=== PATIENT | male | born 1960 | race Two or more races ===

== ENCOUNTER 2019-06-29 20:30 | Inpatient (IN) | payer OTHER ==
[~2019-06-29] VITALS: Ht 162.6 cm; Wt 59.4 kg
[2019-06-29 23:45] VITALS: BP 127/78
[2019-06-30] VITALS: BP 127/78
--- NOTE | 2019-06-30 | NUR ---
design verification engineer notes Report was given by LALA Tapia from [facility]. Received Pt a direct admit from [facility]. Pt arrived accompany by two personnel EMT. Pt arrived with a gurney with ACLS protocol. Pt is 58 Y O Male with a diagnose of Alcohol Withdrawal by Dr. Harding. Pt is alert and orientedX4, calm and cooperative. Pt is a Namibian speaking and able to make needs known. Pt's at the bedside. Respiration is normal. No SOB. No nausea or vomiting. Pt denies any pain or discomfort at this time. Pt states " I drink tequila and beer." Pt also stated Pt's last drink was last thursday. IV sites at RFA # 20 is clean, intact, patent and flush without resistance. Notice Pt's hand tremor a little. Pt's does not take any medications at home. VS is stable. Pt's connected to heart monitor showed normal sinus rhytm. Skin assessment done and picture taken and placed in Pt's chart. Small lump on right cheek. Pt denies any pain or discomfort. All belonging was checked by MIRNA Bergeron. Pt educated on the use of call burnett. Instructed to call for assistance. Safety precautions is maintained. Bed at low position, brakes locked, side rails upX2 and call light is within reach. Will continue to monitor.
--- NOTE | 2019-06-30 00:42 | NUR ---
power ballast machine operator notes Contacted Dr. Harding for admission order. Awaiting for orders.
[2019-06-30] MEDS: IV NS 0.9% 1,000 ML IV PRN (01:56)
[2019-06-30] MEDS ORDERED: ONDANSETRON HCL/PF 4 MG/2 ML VIAL IVP PRN (02:00)
[2019-06-30] MEDS ORDERED: Z GUARD REMEDY 2 OZ OINT TP PRN (02:00)
[2019-06-30] MEDS ORDERED: MAGNESIUM HYDROXIDE 30 ML UDC PO PRN (02:00)
[2019-06-30] MEDS ORDERED: MAG HYDROX/AL HYDROX/SIMETH 30 ML UDC PO PRN (02:00)
[2019-06-30] MEDS ORDERED: HYDROCODONE/APAP 5/325MG 1 EACH TABLET PO PRN (02:00)
[2019-06-30 04:00] VITALS: BP 149/65
[2019-06-30 06:27] LABS: BASOPHILS % (AUTO) 0.9 % (0.0-2.0); EOSINOPHILS % (AUTO) 0.7 % (0.0-6.0); HEMATOCRIT 34 % (39-51); HEMOGLOBIN 11.4 g/dL (13.5-17.5); LYMPHOCYTES # (AUTO) 1.8 /CMM (0.8-4.8); LYMPHOCYTES % (AUTO) 46.7 % (20.0-44.0); MEAN CORPUSCULAR HGB CONC 33 g/dl (31.0-36.0); MEAN CORPUSCULAR VOLUME 106 fL (80-96); MONOCYTES # (AUTO) 0.1 /CMM (0.1-1.30); MONOCYTES % (AUTO) 3.4 % (2.0-12.0); NEUTROPHILS # (AUTO) 1.9 /CMM (1.8-8.9); NEUTROPHILS % (AUTO) 48.3 % (43.0-81.0); PLATELET COUNT (AUTO) 83 /CMM (150-450); RED BLOOD CELL COUNT(AUTO) 3.23 MIL/uL (4.5-6.0); WHITE BLOOD COUNT (AUTO) 3.9 K/uL (4.3-11.0)
--- NOTE | 2019-06-30 06:30 | NUR ---
in home tutor closing notes Pt is alert and oriented X4. Pt is resting in bed comfortably. Respiration is normal. No SOB. No nausea or vomiting. Pt denies any pain or discomfort at this time. IV sites at RFA # 20 is clean, intact, patent and infusing well NS @ 75 ml/hr. VS is stable. alarm security or surveillance monitor showed sinus briana 56 bpm. Kept Pt warm, comfortable and dry. All needs met and attended. Safety precautions is maintained. Bed at low position, brakes locked, side rails upX2, call light is within reach and bed alarm is on. Will endorse to morning nurse for TRUE.
[2019-06-30 06:38] LABS: CHOLESTEROL 342 mg/dL (<200); LDL 215 mg/dL (0-99); THYROID STIMULATING HORMONE 2.684 uIU/mL (0.358-3.74); TRIGLYCERIDES 890 mg/dL (30-150)
[2019-06-30 06:39] LABS: ALANINE AMINOTRANSFERASE 231 U/L (12-78); ALBUMIN 2.5 g/dL (3.4-5.0); ALKALINE PHOSPHATASE 303 U/L (46-116); BILIRUBIN,TOTAL 3.1 mg/dL (0.2-1.0); CALCIUM, SERUM 8.1 mg/dL (8.5-10.1); CARBON DIOXIDE 27 mmol/L (21-32); CHLORIDE 100 mmol/L (98-107); CREATININE 0.7 mg/dL (0.6-1.3); GLUCOSE 128 mg/dL (74-106); MAGNESIUM 1.8 mg/dL (1.8-2.4); PHOSPHORUS 2.9 mg/dL (2.5-4.9); POTASSIUM 3.2 mmol/L (3.5-5.1); SODIUM SERUM 137 mmol/L (136-145); TOTAL PROTEIN, SERUM 5.5 g/dL (6.4-8.2); UREA NITROGEN, BLOOD 12 mg/dL (7-18)
[2019-06-30 06:50] LABS: HDL CHOLESTEROL < 10 mg/dL (40-60)
[2019-06-30 07:07] LABS: ASPARTATE AMINOTRANSFERASE 266 U/L (15-37)
[2019-06-30 08:00] VITALS: BP 141/79
--- NOTE | 2019-06-30 08:00 | NUR ---
MS RN NOTES PATIENT ALERT, ORIENTED X4 . DENIES ANY PAIN OR DISCOMFORT. PERIPHERAL IV INTACT PATENT. BED IN LOW LOCKED POSITION. WILL CONTINUE TO MONITOR.
[2019-06-30] MEDS: LORAZEPAM INJ 2 MG/ML VIAL IV PRN ×2 (08:12→17:44)
[2019-06-30] MEDS: FOLIC ACID 1 MG TABLET PO SCH (08:12)
[2019-06-30] MEDS: THIAMINE HCL 100 MG TABLET PO SCH (08:12)
[2019-06-30 09:15] LABS: EOSINOPHILS % (MANUAL) 1 % (0-4); LYMPHOCYTES % (MANUAL) 43 % (16-48); MONOCYTES % (MANUAL) 4 % (0-11.0); NEUTROPHILS % (MANUAL) 52 (42-76)
[2019-06-30] MEDS ORDERED: POTASSIUM CHLORIDE 20 MEQ TAB.PRT.SR PO SCH (10:00)
[2019-06-30 16:00] VITALS: BP 153/76
--- NOTE | 2019-06-30 18:22 | NUR ---
MS RN NOTES PATIENT IN BED RESTING NO SOB OR ACUTE DISTRESS NOTED . PATIENT ALERT, ORIENTED X3 GERMAN SPEAKING. ALL DUE MEDICATIONS ADMINISTERED. ALL NEEDS MET. NO ACUTE CHANGES NOTED. WILL ENDORSE CARE TO PM SHIFT.
--- NOTE | 2019-06-30 19:15 | NUR ---
RN medsurg notes Pt is alert and oriented x4. Pt speaks Palestinian and able to make needs known. Pt is sitting in bed comfortably. Pt's at the bed side. Respiration is normal. No SOB. No nausea or vomiting. Pt denies any pain or discomfort at this time. IV sites at RFA # 20 is clean, intact, patent and infusing well NS @ 75 ml/hr. Instructed and informed Pt that UA needs to be collected. Pt verbalize understanding. Instructed to call. Safety precautions is maintained all the time. Bed at low position, brakes locked, side rails upX2 and call light is within reach. Will continue to monitor.
[2019-06-30 20:00] VITALS: BP 135/84
[2019-06-30 21:21] LABS: APPEARANCE,URINE Clear (CLEAR); BILIRUBIN,URINE Negative (NEGATIVE); BLOOD, URINE Negative Ery/uL (NEGATIVE); COLOR,URINE Dark (YELLOW); KETONES,URINE Negative (NEGATIVE); LEUKOCYTE ESTERASE ,URINE Negative (NEGATIVE); NITRITE, URINE Negative (NEGATIVE); PROTEIN,URINE Negative (NEGATIVE); UGLUCOSE Negative (NEGATIVE)
[2019-06-30 21:33] LABS: BACTERIA,URINE Rare /HPF (None Seen); RBC,URINE 0-2 /HPF (0-2); SQUAMOUS EPITHELIAL CELL,UR None Seen /HPF (None Seen); WBC,URINE 0-2 /HPF (0-3)
[2019-07-01] MEDS: LORAZEPAM INJ 2 MG/ML VIAL IV PRN ×2 (01:34→07:33)
--- NOTE | 2019-07-01 01:34 | NUR ---
RN medsurmary notes Pt is feeling restlessness and tremor. Administered Ativan Inj 1mg/0.5 ml IV push as ordered for tremor and restlessness per Pt request. Instructed to call. Will continue to monitor.
[2019-07-01] MEDS: IV NS 0.9% 1,000 ML IV PRN ×2 (05:18→20:41)
--- NOTE | 2019-07-01 06:00 | NUR ---
RN medsurg notes Pt accidentally removed IV sites at RFA# 20. Inserted new IV sites at RFA # 22. New sites is clean, intact, patent and flush without resistance. Pt tolerated activity well. Will continue to monitor.
[2019-07-01 06:38] LABS: BASOPHILS # (AUTO) 0.1 /CMM (0.0-0.2); BASOPHILS % (AUTO) 1.2 % (0.0-2.0); EOSINOPHILS % (AUTO) 1.1 % (0.0-6.0); HEMATOCRIT 36 % (39-51); HEMOGLOBIN 11.8 g/dL (13.5-17.5); LYMPHOCYTES # (AUTO) 1.6 /CMM (0.8-4.8); LYMPHOCYTES % (AUTO) 38.2 % (20.0-44.0); MEAN CORPUSCULAR HGB CONC 33 g/dl (31.0-36.0); MEAN CORPUSCULAR VOLUME 105 fL (80-96); MONOCYTES # (AUTO) 0.3 /CMM (0.1-1.30); MONOCYTES % (AUTO) 6.1 % (2.0-12.0); NEUTROPHILS # (AUTO) 2.3 /CMM (1.8-8.9); NEUTROPHILS % (AUTO) 53.4 % (43.0-81.0); PLATELET COUNT (AUTO) 108 /CMM (150-450); RED BLOOD CELL COUNT(AUTO) 3.38 MIL/uL (4.5-6.0); WHITE BLOOD COUNT (AUTO) 4.2 K/uL (4.3-11.0)
--- NOTE | 2019-07-01 06:42 | NUR ---
RN medsur closing notes Pt is alert and oriented X3, confused, and calm. Pt is resting in bed comfortably. Respiration is normal. No SOB. No S/S of distress noted. Pt denies any pain or discomfort at this time. IV sites at RFA # 22 is clean, intact, patent and SL. Pt refused to have IV fluid. Made aware risk and benefits. Pt verbalize understanding. VS is stable. Kept Pt warm, comfortable and dry. All needs met and attended. Safety precautions is maintained. Bed at low position, brakes locked, side rails upX2, call light is within reach and bed alarm is on. Will endorse to morning nurse for TRUE.
[2019-07-01 07:03] LABS: CALCIUM, SERUM 8.8 mg/dL (8.5-10.1); CREATININE 0.6 mg/dL (0.6-1.3); MAGNESIUM 1.7 mg/dL (1.8-2.4); PHOSPHORUS 4.2 mg/dL (2.5-4.9); POTASSIUM 3.5 mmol/L (3.5-5.1)
--- NOTE | 2019-07-01 07:30 | NUR ---
RN OPENING NOTES RECEIVED PATIENT IN BED RESTING. A/OX2, CONFUSED TO PLACE. PATIENT SAID HE'S AT HOME RIGHT NOW, REORIENTED PATIENT THAT HE'S IN [facility]. IV ACCESS ON R FA INTACT AND PATENT. KEPT PATIEN SAFE AND COMFORTABLE. BED IN LOW/LOCKED POSIITON, SIDERAILS UPX2, BED ALARM ON. CALL LIGHT IN REACH. WILL CONT TO MONIOTR ACCORDINGLY.
--- NOTE | 2019-07-01 07:33 | NUR ---
RN NOTES PATIENT NOTED WITH TREMORS, HANDS SHAKING. ATIVAN 1MG IV ORDERED.
[2019-07-01 08:00] VITALS: BP 129/80
--- NOTE | 2019-07-01 08:00 | NUR ---
RN NOTES PATIENT REFUSED TO BE CONNECTED TO IV FLUIDS. EXPLAINED RISK AND BENEFITS X3 BUT STILL REFUSED.
[2019-07-01] MEDS: THIAMINE HCL 100 MG TABLET PO SCH (08:41)
[2019-07-01] MEDS: FOLIC ACID 1 MG TABLET PO SCH (08:41)
[2019-07-01] MEDS ORDERED: LORAZEPAM 1 MG TABLET PO PRN ×2 (10:00→10:30)
--- NOTE | 2019-07-01 10:00 | NUR ---
RN NOTES PATIENT APPEARED MORE CONFUSED, STILL SHAKING, UNSTEADY GAIT, KEPT GETTING OUT OF BED, UNCOOPERATIVE WITH VERBAL COMMAND. PULLED OUT IV ACCESS, NO COMPLICATIONS NOTED. UNABLE TO GIVE ATIVAN DUE TO NO IV ACCESS. KRISTOFER FLORES NP AT [facility] AND MADE AWARE. NEW ORDERS NOTED AND WILL CARRY OUT.
--- NOTE | 2019-07-01 10:03 | NUR ---
RN NOTES CHANGED IV ATIVAN TO PO.
--- NOTE | 2019-07-01 10:05 | NUR ---
RN NOTES PATIENT REFUSED ATIVAN PO. KRISTOFER,LAST PUTTER AWAY AWARE. PER KRISTOFER, SHE WILL CHANGE IT TO IM. MEDICATION WASTED, WITNESS BY LALA FIORE [facility],PHARMACIST, NOTIFIED ABOUT THE WASTE.
[2019-07-01] MEDS ORDERED: Magnesium 1GM/D5W 100ML PREMIX 100 ML IV SCH (10:35)
--- NOTE | 2019-07-01 10:58 | NUR ---
RN NOTES PATIENT STILL SHAKING, CONFUSED SAYING HIS FAMILY IS WAITING FOR HIM OUTSIDE. ALSO GETTING OUT OF BED WITH UNSTEADY GAIT. ASSISTED PATIENT BACK TO BED, BED ALARM ON. MIRNA ZHANG AT BEDSIDE WATCHING HIM. ATIVAN 1MG IV GIVEN ORDERED. WILL MONITOR ACCORDINGLY.
[2019-07-01] MEDS ORDERED: LORAZEPAM INJ 2 MG/ML VIAL IM ONE (11:00)
--- NOTE | 2019-07-01 11:20 | NUR ---
RN NOTES PATIENT TRANSFERRED TO ROOM 320-2 WITH 1:1 SITTER.
[2019-07-01] MEDS ORDERED: MAGNESIUM OXIDE 400 MG TABLET PO ONE (12:00)
[2019-07-01] MEDS: LACTULOSE 10 G/15 ML UDC (PYXIS) PO SCH ×2 (12:57→17:58)
[2019-07-01] MEDS: LORAZEPAM INJ 2 MG/ML VIAL IM PRN ×3 (12:57→21:42)
[2019-07-01 16:00] VITALS: BP 136/97
--- NOTE | 2019-07-01 16:00 | NUR ---
RN NOTES STILL REFUSED IV INSERTION.
--- NOTE | 2019-07-01 19:00 | NUR ---
SITTING ON THE EDGE OF THE BED, SHAKING , DIAPHORETIC, CONFUSED, SITTER AT THE BEDSIDE AT THE BEDSIDE, PT DID ALLOW ME TO START HIS IV LEFT ARM AND START THE FLUID UP ORDERED.
--- NOTE | 2019-07-01 19:13 | NUR ---
RN CLOSING NOTES PATIENT IN STABLE CONDITION. STILL SHAKY. AT BEDSIDE. ALL NEEDS ATTENDED AND PROVIDED. ALL DUE MEDICATIONS ADMINISTERED ORDERED. KEPT PATIENT SAFE AND COMFORTABLE. BE DIN LOW/LOCKED POSITION, SIDERAILS UPX2, SITTER AT BEDSIDE FOR SAFETY. ENDORSED TO NIGHT RN FOR TRUE.
[2019-07-01 20:05] VITALS: BP 127/78
[2019-07-01 20:17] VITALS: BP 127/78
[2019-07-02] MEDS: LACTULOSE 10 G/15 ML UDC (PYXIS) PO SCH ×3 (00:11→17:20)
[2019-07-02] MEDS: LORAZEPAM INJ 2 MG/ML VIAL IM PRN ×2 (02:49→19:50)
--- NOTE | 2019-07-02 03:00 | NUR ---
CALL PLACED TO EZIO CERRATO REGARDING CONFUSION HALLUZINATIONS (REACHING IN MIDAIR, WHISTLING, KNCKING ON THE WALL,AND FOR AGITATION GETTING OOB FREQUENTLYSHAKING, DIAPHORETIC , TORE HIS IV TUBING, REFUSING THE IV FLUIDS. ORDERS TO GIVE HIM ATIVAN 2 MY IV X1, MADE EZIO AWARE I GAVE 2MG IM DOSE AT 1AM
[2019-07-02] MEDS ORDERED: LORAZEPAM INJ 2 MG/ML VIAL IV ONE (03:30)
--- NOTE | 2019-07-02 04:20 | NUR ---
ASSESSMENT AFTER THE 1x DOSE OS ATIVAN IV AWAKE SSAME LEVEL OF CONFUSION, TALKING TO THE SAUL WHISTLING TO CALL FOR HELP KICKING WHEN NURSE ATTEMPS TO HELP HE WILL KICK AND TWIST HER AEM SITTER AT THE BEDSIDE
--- NOTE | 2019-07-02 04:39 | NUR ---
RT NOTE PT REFUSED EKG, RN VICENTE AWARE.
[2019-07-02 05:41] VITALS: BP 105/67
--- NOTE | 2019-07-02 05:57 | NUR ---
PATIENT ASLEEP SOUNDLY. NOT SHAKING, SKIN DRY, SATS WERE 85% RA PLACED 2 LITERS N/C AND SATS AT 99%. REFUSED THE EKG EARLIER. SITTER REMAINS AT THE BEDSIDE. BED ALARM ON APPEARS COMFORTABLE. SLEPT FOR 2 HOURS THIS 12 HOUR SHIFT
[2019-07-02 06:49] LABS: BILIRUBIN,TOTAL 2.8 mg/dL (0.2-1.0); CALCIUM, SERUM 8.7 mg/dL (8.5-10.1); CREATININE 0.9 mg/dL (0.6-1.3); PHOSPHORUS 7.1 mg/dL (2.5-4.9); POTASSIUM 3.4 mmol/L (3.5-5.1); TOTAL PROTEIN, SERUM 6.2 g/dL (6.4-8.2)
[2019-07-02 06:53] LABS: BASOPHILS # (AUTO) 0.1 /CMM (0.0-0.2); BASOPHILS % (AUTO) 1.1 % (0.0-2.0); EOSINOPHILS % (AUTO) 0.2 % (0.0-6.0); HEMATOCRIT 35 % (39-51); HEMOGLOBIN 11.5 g/dL (13.5-17.5); LYMPHOCYTES # (AUTO) 1.1 /CMM (0.8-4.8); LYMPHOCYTES % (AUTO) 23.3 % (20.0-44.0); MEAN CORPUSCULAR HGB CONC 33 g/dl (31.0-36.0); MEAN CORPUSCULAR VOLUME 106 fL (80-96); MONOCYTES # (AUTO) 0.5 /CMM (0.1-1.30); NEUTROPHILS # (AUTO) 3.2 /CMM (1.8-8.9); NEUTROPHILS % (AUTO) 65.4 % (43.0-81.0); PLATELET COUNT (AUTO) 148 /CMM (150-450); RED BLOOD CELL COUNT(AUTO) 3.26 MIL/uL (4.5-6.0); WHITE BLOOD COUNT (AUTO) 4.9 K/uL (4.3-11.0)
[2019-07-02 08:00] VITALS: BP 111/72
--- NOTE | 2019-07-02 08:00 | NUR ---
MS RN OPENING NOTES Received Patient resting and asleep in bed. VS stable with no acute distress. Breathing even and unlabored on 2LPM via NC with no respiratory distress. No signs and symptoms of pain at this time. 22g PIV on LFA clean, dry, intact and flushing well. Safety precautions in place. Bed locked and set to lowest position with side rails x 2 up. All needs rendered at this time. Call light within reach. Sitter at bedside. Will continue to monitor.
[2019-07-02] MEDS: THIAMINE HCL 100 MG TABLET PO SCH (08:26)
[2019-07-02] MEDS: FOLIC ACID 1 MG TABLET PO SCH (08:26)
[2019-07-02] MEDS ORDERED: POTASSIUM CHLORIDE 20 MEQ TAB.PRT.SR PO SCH (10:00)
[2019-07-02] MEDS: CHLORDIAZEPOXIDE HCL 5 MG CAPSULE PO SCH ×2 (13:14→17:20)
[2019-07-02 16:00] VITALS: BP 106/72
--- NOTE | 2019-07-02 18:52 | NUR ---
MS RN CLOSING NOTES Patient awake and ambulating with around unit. VS stable with no acute distress. Breathing even and unlabored on room air with no respiratory distress. Denies pain. 22g PIV on LFA clean, dry, intact and flushing well. Safety precautions in place. Bed locked and set to lowest position with side rails x 2 up. All needs rendered at this time. Call light within reach. Sitter at bedside. Will endorse plan of care to oncoming shift.
--- NOTE | 2019-07-02 19:05 | NUR ---
RN MS OPENING NOTES RECEIVED PATIENT IN BED AWAKE ALERT AND ORIENTED X2-3 ,ABLE TO MAKE NEEDS, RESPIRATIONS EVEN AND UNLABORED WITH EQUAL RISE AND FALL OF CHEST, DENIES ANY PAIN OR DISCOMFORT, IV SITE TO LEFT FA INTACT AND PATENT, NO REDNESS, NO INFILTRATION PRESENT, ORIENTED TO STAFF AND CALL LIGHT AND KEPT WITHIN REACH, SAFETY PRECAUTIONS IN PLACE, LOW BED AND LOCKED, SITTER AT BEDSIDE, TOILETING AND FLUIDS OFFERED, ALL NEEDS ATTENDED AT THIS TIME, WILL CONTINUE TO MONITOR FOR ANY CHANGES AND ATTEND TO NEEDS.
--- NOTE | 2019-07-02 19:50 | NUR ---
RN MS NOTES PATIENT SHOWED AND STATES "I HAVE TREMORS" IN [place], REQUESTING FOR MEDICATION. ATIVAN PRN OFFERED, PATIENT AGREED . PRN ATIVAN GIVEN ORDERED, WILL CONTINUE TO MONITOR FOR EFFECTIVENESS.
[2019-07-02 20:00] VITALS: BP 118/79
[2019-07-03 06:32] LABS: BASOPHILS % (AUTO) 1.5 % (0.0-2.0); EOSINOPHILS % (AUTO) 0.8 % (0.0-6.0); HEMATOCRIT 33 % (39-51); HEMOGLOBIN 10.9 g/dL (13.5-17.5); LYMPHOCYTES # (AUTO) 1.4 /CMM (0.8-4.8); LYMPHOCYTES % (AUTO) 42.9 % (20.0-44.0); MEAN CORPUSCULAR HGB CONC 33 g/dl (31.0-36.0); MEAN CORPUSCULAR VOLUME 107 fL (80-96); MONOCYTES # (AUTO) 0.3 /CMM (0.1-1.30); MONOCYTES % (AUTO) 9.9 % (2.0-12.0); NEUTROPHILS # (AUTO) 1.4 /CMM (1.8-8.9); NEUTROPHILS % (AUTO) 44.9 % (43.0-81.0); PLATELET COUNT (AUTO) 163 /CMM (150-450); RED BLOOD CELL COUNT(AUTO) 3.08 MIL/uL (4.5-6.0); WHITE BLOOD COUNT (AUTO) 3.2 K/uL (4.3-11.0)
--- NOTE | 2019-07-03 06:34 | NUR ---
RN MS CLOSING NOTES PATIENT IN BED AWAKE ALERT AND ORIENTED X2-3 ,ABLE TO MAKE NEEDS, RESPIRATIONS EVEN AND UNLABORED WITH EQUAL RISE AND FALL OF CHEST, DENIES ANY PAIN OR DISCOMFORT, IV SITE TO LEFT FA #22 INTACT AND PATENT, IVF RUNNING ORDERED NO REDNESS, NO INFILTRATION PRESENT, CALL LIGHT KEPT WITHIN REACH, SAFETY PRECAUTIONS IN PLACE, LOW BED AND LOCKED, SITTER AT BEDSIDE, TOILETING AND FLUIDS OFFERED, ALL NEEDS ATTENDED AT THIS TIME, WILL CONTINUE TO MONITOR AND ENDORSE TO NEXT SHIFT, ATIVAN PRN WAS EFFECTIVE FOR TREMORS.
[2019-07-03 06:55] LABS: CALCIUM, SERUM 8.4 mg/dL (8.5-10.1); CREATININE 0.6 mg/dL (0.6-1.3); MAGNESIUM 2.1 mg/dL (1.8-2.4); PHOSPHORUS 3.9 mg/dL (2.5-4.9); POTASSIUM 3.7 mmol/L (3.5-5.1)
--- NOTE | 2019-07-03 07:53 | NUR ---
M/S RN OPENING NOTES RECEIVED PATIENT ON BED, A/O X 4 AND ABLE TO MAKE NEEDS KNOWN, ARMENIAN AND [place] VERDEAN SPEAKER. WITH SITTER ON BEDSIDE. NO SOB NOTED. DENIES PAIN AND DISCOMFORT. ABD SOFT AND NON DISTENDED. SKIN WARM TO TOUCH AND DRY. IV SITE AT LFA GAUGE 22 RUNNING NS 75 ML/HR. CALL LIGHT WITHIN REACH. WILL CONTINUE TO EVALUATE CARE.
[2019-07-03 08:00] VITALS: BP 125/74
[2019-07-03] MEDS: THIAMINE HCL 100 MG TABLET PO SCH (08:08)
[2019-07-03] MEDS: ACETAMINOPHEN 325 MG TABLET PO PRN ×2 (08:08→21:18)
[2019-07-03] MEDS: FOLIC ACID 1 MG TABLET PO SCH (08:08)
[2019-07-03] MEDS: CHLORDIAZEPOXIDE HCL 5 MG CAPSULE PO SCH (08:08)
[2019-07-03] MEDS: LACTULOSE 10 G/15 ML UDC (PYXIS) PO SCH ×3 (08:08→16:17)
--- NOTE | 2019-07-03 08:10 | NUR ---
M/S RN NOTES PT C/O OF HEADACHE 01/05, TYLENOL GIVEN FOR PAIN MANAGEMENT.
--- NOTE | 2019-07-03 08:46 | NUR ---
M/S RN NOTES PATIENT STATED FELT BETTER AFTER TYLENOL. WILL SLEEP FOR NOW
[2019-07-03] MEDS: IV NS 0.9% 1,000 ML IV PRN (09:32)
--- NOTE | 2019-07-03 11:13 | NUR ---
M/S RN NOTES PATIENT SEEN AND EVALUATED BY KRISTOFER CLAIRE. INFORMED PATIENT WITH NEW ORDERS OF LAB, INCREASING CHLORDIAZEPOXIDE DOSAGE FOR TREMORS. MONITOR PATIENTS TREMOR UNTIL END OF THE DAY WITH POSSIBLE DISCHARGE IF TREMORS IMPROVED/RESOLVED. PT VERBALIZED UNDERSTANDING WITH ON BEDSIDE
[2019-07-03] MEDS ORDERED: CHLO10CA6 PO (11:14)
[2019-07-03] MEDS ORDERED: LACT10SO6 PO (11:14)
[2019-07-03] MEDS ORDERED: Thiamine HCL PO (11:14)
[2019-07-03] MEDS ORDERED: FOLI1TAB16 PO (11:14)
[2019-07-03 16:00] VITALS: BP 115/77
[2019-07-03] MEDS: CHLORDIAZEPOXIDE HCL 10 MG CAPSULE PO SCH (16:17)
--- NOTE | 2019-07-03 18:30 | NUR ---
M/S RN NOTES NOTIFIED KRISTOFER CLAIRE FOR MONITORED CONTINUOUS TREMORS OF PATIENT, NEEDED STAND BY ASSIST IN AMBULATION WITH COMPLAIN OF LIGHT HEADEDNESS. NO DC ORDER NOTED AT THIS TIME. PT MADE AWARE.
--- NOTE | 2019-07-03 18:49 | NUR ---
M/S RN CLOSING NOTES PT A/O X 2-3, UGANDAN AND EGYPTIAN SPEAKING. NO SOB NOTED. DENIES PAIN AND DISCOMFORT. ABD SOFT AND NON DISTENDED, WITH BRP STAND BY ASSIST. STILL WITH PRESENCE OF TREMORS WITH ON AND OFF LIGHTHEADEDNESS REPORTED TO HOSPITALIST, HELD DISCHARGE TODAY. IV SITE AT LEFT FOREARM RUNNING NS AT 75 ML/HR, PT ALWAYS AMBULATES AND PREFERRED NO IV WHILE ACTIVITY. ENCOURAGED TO DRINK WATER INTAKE REPLACEMENT. ALL CONCERNS ADDRESSED. ENDORSED PT CARE TO NEXT SHIFT.
--- NOTE | 2019-07-03 19:30 | NUR ---
MS RN OPENING NOTE RECEIVED PATIENT IN CHAIR. A/O X 3. TOLERATING ROOM AIR. RESPIRATIONS ARE EVEN AND UNLABORED. NO S/S SOB. DENIES PAIN AT THIS TIME. NO APPARENT DISTRESS. IV ACCESS IN LFA #22 PATENT AND RUNNING NS@75ML/HR. BED IS LOW AND LOCKED, SIDE RAILS UP X2. CALL LIGHT WITHIN REACH. FAMILY AT THE BEDSIDE. WILL CONTINUE TO MONITOR.
[2019-07-03 20:00] VITALS: BP 122/51
--- NOTE | 2019-07-03 21:18 | NUR ---
MS RN NOTE ADMINISTER PRN TYLENOL 650MG FOR C/O HEADACHE. WILL CONTINUE TO MONITOR.
--- NOTE | 2019-07-03 22:20 | NUR ---
MS RN NOTE PATIENT REPORTS NO MORE HEADACHE. WILL CONTINUE TO MONITOR.
[2019-07-04 06:19] LABS: BASOPHILS % (AUTO) 1.2 % (0.0-2.0); HEMATOCRIT 31 % (39-51); HEMOGLOBIN 10.5 g/dL (13.5-17.5); LYMPHOCYTES # (AUTO) 1.2 /CMM (0.8-4.8); MEAN CORPUSCULAR HGB CONC 34 g/dl (31.0-36.0); MEAN CORPUSCULAR VOLUME 107 fL (80-96); MONOCYTES # (AUTO) 0.4 /CMM (0.1-1.30); MONOCYTES % (AUTO) 12.3 % (2.0-12.0); NEUTROPHILS # (AUTO) 1.9 /CMM (1.8-8.9); NEUTROPHILS % (AUTO) 53.5 % (43.0-81.0); PLATELET COUNT (AUTO) 183 /CMM (150-450); RED BLOOD CELL COUNT(AUTO) 2.92 MIL/uL (4.5-6.0); WHITE BLOOD COUNT (AUTO) 3.6 K/uL (4.3-11.0)
[2019-07-04 06:26] LABS: CALCIUM, SERUM 8.2 mg/dL (8.5-10.1); CREATININE 0.6 mg/dL (0.6-1.3); MAGNESIUM 2.2 mg/dL (1.8-2.4); PHOSPHORUS 3.1 mg/dL (2.5-4.9); POTASSIUM 3.3 mmol/L (3.5-5.1)
--- NOTE | 2019-07-04 07:54 | NUR ---
MS RN OPENING NOTES RECEIVED PATIENT IN BED, ALERT AND AWAKE ORIENTED X3. DENIES ANY C/O PAIN NOR DISCOMFORT. NO SOB. LFA #22 INTACT AND PATENT INFUSING NS @ 75 ML/HR EARNEST WELL. AMBULATORY WITH STEADY GAIT. CALL LIGHT WITHIN REACH. ABLE TO VERBALIZE NEEDS.
[2019-07-04] MEDS: THIAMINE HCL 100 MG TABLET PO SCH (08:44)
[2019-07-04] MEDS: FOLIC ACID 1 MG TABLET PO SCH (08:44)
[2019-07-04] MEDS: LACTULOSE 10 G/15 ML UDC (PYXIS) PO SCH ×2 (08:44→13:45)
[2019-07-04] MEDS: CHLORDIAZEPOXIDE HCL 10 MG CAPSULE PO SCH (08:44)
[2019-07-04] MEDS: IV NS 0.9% 1,000 ML IV PRN (08:44)
[2019-07-04] MEDS ORDERED: POTASSIUM CHLORIDE 20 MEQ TAB.PRT.SR PO SCH (09:30)
[2019-07-04] MEDS ORDERED: CHLO25CA22 PO (11:21)
--- NOTE | 2019-07-04 14:40 | NUR ---
MS BEAMING INSPECTOR/CLOSING NOTES PATIENT ALERT AND ORIENTED X3. NO SOB. DENIES ANY C/O PAIN, DISCOMFORT, N/V. AMBULATORY WITH STEADY GAIT. PATIENT COMPLIANT WITH CARE. DISCHARGE INSTRUCTIONS AND PACKET GIVEN TO PATIENT ALONG WITH EDUCATION WITH AT SIDE. IV ACCESS CATHETER REMOVED WITH CATHETER TIP INTACT WITH GAUZE DRESSING IN PLACE. ALL BELONGINGS ACCOUNTED FOR. PATIENT LEFT IN STABLE CONDITION VIA PRIVATE CARE.
== END 2019-07-04 14:40 | disposition home or self-care (01) | DRG 279 ==
LOC: TELE 23:33 → MED 06-30 08:30
PROVIDERS: ADMIT Registered Nurse; ATTEND Registered Nurse
DX: K72.00 Acute and subacute hepatic failure without coma (principal); F10.231 Alcohol dependence with withdrawal delirium; D69.6 Thrombocytopenia, unspecified; E87.1 Hypo-osmolality and hyponatremia; K70.30 Alcoholic cirrhosis of liver without ascites; K70.0 Alcoholic fatty liver; Y90.9 Presence of alcohol in blood, level not specified; E87.6 Hypokalemia; D53.9 Nutritional anemia, unspecified; T51.0X1A Toxic effect of ethanol, accidental (unintentional), initial encounter; Y90.0 Blood alcohol level of less than 20 mg/100 ml; Z71.41 Alcohol abuse counseling and surveillance of alcoholic
CPT/HCPCS: 36415; 76700-TC; 80048-TC; 80053-TC; 80061-TC; 81000-TC; 82140-TC; 82962-TC; 83735-TC; 84100-TC; 84443-TC; 85025-TC; 87081-TC; G0378; G0480; J2060; J7030

== ENCOUNTER 2019-10-15 17:08 | Emergency (ER) | payer OTHER ==
[~2019-10-15] VITALS: Ht 167.6 cm; Wt 59.4 kg
[~2019-10-15 17:08] MED LIST: CHLO25CA22 PO; FOLI1TAB16 PO; LACT10SO6 PO; Thiamine HCL PO
--- NOTE | 2019-10-15 17:49 | NUR ---
PT CAME IN BIB FAMILY MEMBER C/O RELAPSE FROM DRINKING. PT'S FAMILY MEMBER STATES THAT HE DRANK 3 VODKA SHOTS AND HAS BEEN FEELING BAD. PT IS AAOX3. NOT IN ANY DISTRESS. BREATHING EVENLY AND UNLABORED. CONNECTED TO MONITOR.
--- NOTE | 2019-10-15 17:55 | NUR ---
blood collected and sent with phlebotomis
[2019-10-15] MEDS ORDERED: IV NS 0.9% 1,000 ML BAG IV ONE (18:00)
[2019-10-15 18:03] LABS: BASOPHILS % (AUTO) 0.6 % (0.0-2.0); EOSINOPHILS % (AUTO) 0.1 % (0.0-6.0); HEMATOCRIT 47 % (39-51); HEMOGLOBIN 15.6 g/dL (13.5-17.5); LYMPHOCYTES # (AUTO) 2.6 /CMM (0.8-4.8); LYMPHOCYTES % (AUTO) 49.4 % (20.0-44.0); MEAN CORPUSCULAR HGB CONC 33 g/dl (31.0-36.0); MEAN CORPUSCULAR VOLUME 93 fL (80-96); MONOCYTES # (AUTO) 0.2 /CMM (0.1-1.30); MONOCYTES % (AUTO) 3.3 % (2.0-12.0); NEUTROPHILS # (AUTO) 2.5 /CMM (1.8-8.9); NEUTROPHILS % (AUTO) 46.6 % (43.0-81.0); PLATELET COUNT (AUTO) 188 /CMM (150-450); RED BLOOD CELL COUNT(AUTO) 5.02 MIL/uL (4.5-6.0); WHITE BLOOD COUNT (AUTO) 5.3 K/uL (4.3-11.0)
[2019-10-15 18:10] LABS: CREATININE 0.6 mg/dL (0.6-1.3); POTASSIUM 3.6 mmol/L (3.5-5.1)
[2019-10-15 18:17] LABS: ALBUMIN 3.9 g/dL (3.4-5.0); BILIRUBIN,DIRECT 0.1 mg/dL (0.0-0.2); BILIRUBIN,TOTAL 0.2 mg/dL (0.2-1.0); TOTAL PROTEIN, SERUM 7.3 g/dL (6.4-8.2)
--- NOTE | 2019-10-15 19:26 | NUR ---
pt sleeping comfortably in bed. family member at bedside. no sob. breathing evenly and unlabored. connected to the monitor. call light within reach. will conitinue to monitor patient.
--- NOTE | 2019-10-15 20:35 | NUR ---
Patient is ambulatory with a steady gait.
--- NOTE | 2019-10-15 20:51 | NUR ---
IV removed. Catheter intact and site benign. Pressure and 4x4 applied to site. No bleeding noted. Patient discharged to home in stable condition. Written and verbal after care instructions given. Patient verbalizes understanding of instruction.
[2019-10-15 21:04] VITALS: BP 117/73
== END 2019-10-15 21:05 | disposition home or self-care (01) ==
LOC: ER 17:10
DX: F10.10 Alcohol abuse, uncomplicated (principal); E78.5 Hyperlipidemia, unspecified; Z98.890 Other specified postprocedural states; Z79.899 Other long term (current) drug therapy; Y90.8 Blood alcohol level of 240 mg/100 ml or more
CPT/HCPCS: 36415; 70450; 71045; 80048; 80076; 80307; 85025; 93005; 99284; J7030; G0480